=== PATIENT | female | born 1995 | race African-American/Black ===

== ENCOUNTER 2022-09-22 12:49 | Emergency (ER) | payer MEDICAID, OTHER ==
[~2022-09-22] VITALS: Ht 165.1 cm; Wt 93.0 kg
[2022-09-22 13:25] VITALS: BP 133/86
[2022-09-22] MEDS ORDERED: ONDANSETRON HCL 4MG TABLET PO ONE (15:45)
[2022-09-22] MEDS ORDERED: FAMOTIDINE 20MG TABLET PO ONE (15:45)
== END 2022-09-22 17:29 | disposition home or self-care (01) ==
LOC: ER 13:45
DX: K52.9 Noninfective gastroenteritis and colitis, unspecified (principal)
CPT/HCPCS: 81025; 99283; Q0162